=== PATIENT | female | born 1970 | race Caucasian/White ===

== ENCOUNTER 2021-12-09 09:30 | Day surgery (SDC) | payer OTHER, SELFPAY ==
[2021-12-08 11:36] VITALS: BMI 27.6
[2021-12-09 09:56] VITALS: BP 166/94; PULSE 64; RESP 15; TEMP 36.8; O2SAT 97
[2021-12-09 10:01] LABS: OR HCG Qualitative Urine Negative (Negative)
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
[2021-12-09] MEDS: sodium chloride 0.9% 1,000 ML 30 ML IV (10:08)
--- NOTE | 2021-12-09 10:25 | W.PM.OPSUD ---
Surgery/Procedure H&P Update DATE OF PROCEDURE: December 09, 2021 DATE H&P PERFORMED: 11/19/21 PREOP DIAGNOSIS: foreign body right arm PLANNED PROCEDURE: Operation Date: 12/09/21 11:25 Proposed Procedures p excision of foreign body right arm [id number],M79.5(Right) - Donald Baptitse DO
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
[2021-12-09 10:59] VITALS: BP 112/83; PULSE 74; RESP 16; TEMP 36.8; O2SAT 94
[2021-12-09 11:05] VITALS: BP 118/82; PULSE 70; RESP 15; TEMP 36.3; O2SAT 92
[2021-12-09 11:08] VITALS: BP 116/86; PULSE 73; RESP 15; TEMP 36.6; O2SAT 96
[2021-12-09 11:23] VITALS: BP 126/91; PULSE 70; RESP 16; O2SAT 98
--- NOTE | 2021-12-09 14:45 | ANE.PACU2 ---
Inpatient post-anesthesia follow up: Airway intact: Yes Vital signs: Temperature 98 F Pulse Rate 70 Respiratory Rate 16 Blood Pressure 126/91 Pulse Oximetry 98 Oxygen Delivery Me thod Room Air Oxygen Flow Rate Fraction of Inspir ed Oxygen Hydration adequate: Yes Nausea and vomiting: No Pain level: 1 Mental status: Baseline
== END 2021-12-09 11:35 | disposition home or self-care (01) ==
PROVIDERS: PCP Nurse Practitioner Family; Visit Provider Surgery
PROC: (CPT 10120; principal; 2021-12-09 11:15)
DX: S41.141A Puncture wound with foreign body of right upper arm, initial encounter (principal); V89.2XXA Person injured in unspecified motor-vehicle accident, traffic, initial encounter
CPT/HCPCS: 10120; 81025; 84703; 88300; J2704; J3010; J7030

== ENCOUNTER 2022-04-12 08:57 | Outpatient (CLI) | payer MEDICAID, SELFPAY ==
--- NOTE | 2022-04-12 09:30 | MR_ITS ---
WS: [id number] MRI BRAIN WITHOUT CONTRAST HISTORY: R29.90 - Unspecified symptoms and signs involving the nervous system. Prior small brain hemo rrhage. COMPARISON: CT head 10/03/2021 and 09/22/2021 TECHNIQUE: Diffusion imaging, multiplanar T1, T2 and FLAIR imaging obtained. No evidence for acute infarct or hemorrhage. [place]-white matter differentiation is normal. No residual subarachnoid blood products are noted along the LEFT sylvian fissure as described on the prior study, head CT from 09/22/2021. No hemosiderin. On the FLAIR sequence there are very few scattere d T2 and FLAIR signal hyperintensities. These are predominantly within the LEFT subcortical frontal l obe white matter which can be related to migraines. Ventricles and extra-axial spaces are normal. No inferior displacement of cerebellar tonsils. The sella turcica and pituitary gland are unremarkabl e. Dural venous sinuses and [place] demonstrate no abnormality on this unenhanced studies. Paranasal sinuses: Clear. Mastoid air cells: Normal. Calvarium and scalp: Intact. MR/MR head wo con* [id number] IMPRESSION: 1. No diffusion-weighted abnormalities or acute hemorrhage. 2. No significant residual LEFT subdural arachnoid hemorrhage identified. 3. Very minimal subcortical white matter lesions in the LEFT frontal lobe. Dif ferential includes small vessel ischemic disease and history of migraines.
== END 2022-04-12 08:58 | disposition home or self-care (01) ==
LOC: RAD 08:58
PROVIDERS: PCP Nurse Practitioner Family; Visit Provider Specialist
DX: R29.90 Unspecified symptoms and signs involving the nervous system (principal); G93.9 Disorder of brain, unspecified
CPT/HCPCS: 70551

== ENCOUNTER → 2022-05-04 13:38 | Outpatient (BNVA) | payer MEDICAID, SELFPAY | PROVIDERS: PCP Nurse Practitioner Family; Visit Provider Podiatrist Foot & Ankle Surgery | DX: M72.2 Plantar fascial fibromatosis (principal) | CPT/HCPCS: 73630 ==

== ENCOUNTER 2022-05-06 07:50 | Outpatient (CLI) | payer MEDICAID, SELFPAY ==
--- NOTE | 2022-05-06 08:00 | MM_ITS ---
WS: [id number] BILATERAL SCREENING DIGITAL TOMOSYNTHESIS MAMMOGRAM WITH CAD HISTORY: SCREENING COMPARISON: 04/04/2008 Bilateral CC and MLO views with tomosynthesis and synthetic mammography submitted. Computer aided det ection analyzed. Breast composition: There are scattered areas of fibroglandular density. No suspicious masses, microc alcifications or architectural distortion. MM/[place] [id number] IMPRESSION: BI-RADS: 1-Negative FOLLOW UP: 1 Year Follow-up
== END 2022-05-06 07:51 | disposition home or self-care (01) ==
PROVIDERS: PCP Nurse Practitioner Family; Visit Provider Nurse Practitioner Family
DX: Z12.31 Encounter for screening mammogram for malignant neoplasm of breast (principal)
CPT/HCPCS: 77063; 77067

== ENCOUNTER 2022-08-26 23:26 | Emergency (ER) | payer MEDICAID, SELFPAY ==
[2022-08-26 23:39] VITALS: PULSE 74; RESP 13; TEMP 36.7; O2SAT 98
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
[2022-08-27 00:33] VITALS: RESP 19
[2022-08-27] MEDS: morphine 4 mg/mL SDV 1 mL IM (00:33)
[2022-08-27] MEDS: methocarbamol 750 mg Tablet PO (00:33)
[2022-08-27] MEDS: dexamethasone 10 mg/mL INJ IM (00:34)
[2022-08-27 01:02] VITALS: BP 136/93; PULSE 68; O2SAT 98
[2022-08-27] MEDS: ketorolac 60 mg/2 mL INJ IM (01:05)
== END 2022-08-27 01:13 | disposition home or self-care (01) ==
PROVIDERS: Emergency Provider Physician Assistant; PCP Nurse Practitioner Family
DX: M54.50 Low back pain, unspecified (principal)
CPT/HCPCS: 96372; 99284; J1100; J1885; J2270

== ENCOUNTER 2022-08-29 15:54 | Outpatient (CLI) | payer MEDICAID, SELFPAY ==
--- NOTE | 2022-08-29 16:08 | XR_ITS ---
WS: [id number] XR lumbar spine 2-3V* [id number] REASON FOR EXAM: BACK PAIN FINDINGS: Mild rotatory scoliosis of the lumbar spine convex left. Relatively normal lordosis. No focal vertebral body abnormality. Intervertebral disc spaces are intact and relatively well-preserved. Minimal anterior osteophytosis a t L4-L5. No spondylolysis or spondylolisthesis. XR/XR lumbar spine 2-3V* [id number] IMPRESSION: Minimal change of degenerative spondylosis as above.
== END 2022-08-29 15:55 | disposition home or self-care (01) ==
LOC: RAD 16:03
PROVIDERS: PCP Nurse Practitioner Family; Visit Provider Nurse Practitioner Family
DX: M47.816 Spondylosis without myelopathy or radiculopathy, lumbar region (principal)
CPT/HCPCS: 72100

== ENCOUNTER 2023-03-22 10:47 | Outpatient (CLI) | payer MEDICAID, SELFPAY ==
[2023-03-22 12:26] VITALS: BMI 29.9
--- NOTE | 2023-03-22 12:27 | ECG_ITS ---
[facility] Test Date: 2023-03-22 Pat Name: Melvi Jordan Department: Room: Gender: Female Supervisor Operations: : 1970 Requested By: Odilia Santos Order Number: [id number] Angelica MD: Dakotah Eaton M.D. Interpretive Statements NAME OF STUDY: TREADMILL STRESS TEST INDICATION: [Chest Pain] EXERCISE DATA: The patient was exercised by Marcello protocol. Baseline heart rate was 77 beats per minute. Baseline blood pressure was 139/106 millimeters of mercury. Target heart rate was 143 beats per minute. Maximum heart rate achieved was 163, which was 113% of the target heart rate. Maximum blood pressure was 207/100 millimeters of mercury. Total exercise time was 9 minutes. Maximum METs achieved was 10.2. The reason for ending the test was maximal effort achieved. The patient complained of shortness of breath during the stress test, which then resolved at the end of the test. ELECTROCARDIOGRAM: BASELINE: Showed sinus rhythm, normal axis, no significant ST-T changes at the baseline noted. [] EXERCISE: At the peak exercise level, [] during exercise, no significant ST-T wave changes are seen. PVCs are seen. RECOVERY: During the recovery period, heart rate dropped appropriately. No significant ST-T changes in the recovery suggestive of ischemia noted. [] CONCLUSION: 1. Exercise capacity is good. 2. Heart rate response was appropriate. 3. Blood pressure response was appropriate. 4. Symptoms not suggestive of ischemia. 5. Stress test is negative for ischemia Electronically Signed On 04-09-2023 20:30:34 SHIP SUPERINTENDENT by Dakotah Eaton M.D. [email or web address]
[2023-03-22 13:11] VITALS: BP 138/72; PULSE 86
== END 2023-03-22 10:48 | disposition home or self-care (01) ==
PROVIDERS: PCP Nurse Practitioner Family; Visit Provider Nurse Practitioner Family
DX: R07.9 Chest pain, unspecified (principal)
CPT/HCPCS: 93017

== ENCOUNTER → 2023-05-08 12:28 | Outpatient (BNVA) | payer MEDICAID, SELFPAY | PROVIDERS: PCP Nurse Practitioner Family; Referring Provider Nurse Practitioner Family; Visit Provider Internal Medicine | DX: R07.9 Chest pain, unspecified (principal) | CPT/HCPCS: 93005 ==

== ENCOUNTER 2023-05-11 06:33 | Outpatient (CLI) | payer MEDICAID, SELFPAY ==
--- NOTE | 2023-05-11 06:30 | USCV_ITS ---
Melvi Jordan Age: 52 Gender: F : 1970 Exam Date: 05/11/2023 06:41 Ordering Phys: Dakotah Eaotn M.D ([email or web address]) Technologist: EVERARDO [place] [facility] [place]: CHEST PAIN AND SHORTNESS OF BREATH BP: 132 / 80 HR: 65 Rhythm: Sinus Technical Quality: Adequate MEASUREMENTS (Male / Female) Normal Values 2D ECHO LV Diastolic Diameter PLAX 4.4 cm 4.2 - 5.9 / 3.9 - 5.3 cm IVS Diastolic Thickness 1.0 cm 0.6 - 1.0 / 0.6 - 0.9 cm IVS Systolic Thickness 1.7 cm LVPW Diastolic Thickness 1.3 cm 0.6 - 1.0 / 0.6 - 0.9 cm LVPW Systolic Thickness 1.8 cm LVOT Diameter 2.0 cm LV Ejection Fraction 2D Teich 67.2 % LV Ejection Fraction MOD 2C 57.9 % LV Ejection Fraction 2C AL 0.0 % LA Diameter 3.4 cm Aorta at Sinotubular Diameter 2.2 cm IVC Diameter 1.2 cm M-MODE LA Ao Ratio MM 1.0 AV Cusp Separation MM 1.6 cm DOPPLER AV Peak Velocity 125.0 cm/s LVOT Peak Velocity 89.0 cm/s AV Area Cont Eq vti 2.4 cm squared AV Area Cont Eq pk 2.2 cm squared MV Peak Velocity 98.0 cm/s MV Area PHT 2.6 cm squared Mitral E to A Ratio 1.2 TR Peak Velocity 198.0 cm/s TR Peak Gradient 15.7 mmHg TR Mean Velocity 158.0 cm/s TR Mean Gradient 10.7 mmHg TR Velocity Time Integral 69.2 cm TV Peak E Velocity 63.0 cm/s Right Atrial Pressure 3.0 mmHg Pulmonary Artery Systolic Pressu 18.7 mmHg PV Peak Velocity 85.0 cm/s RV Ejection Time 0.3 s FINDINGS Left Ventricle Left ventricle is normal in size. LV systolic function is normal with EF of 55 to 60%. No regional wall motion abnormalities are seen. Right Ventricle Normal in size and function Right Atrium Normal in size Left Atrium Normal in size Mitral Valve Structurally normal mitral valve. Mild mitral regurgitation. Aortic Valve Structurally normal aortic valve. No significant stenosis. Mild aortic regurgitation. Tricuspid Valve Mild tricuspid regurgitation. Pulmonary artery systolic pressure is normal. Pulmonic Valve Not well visualized Pericardium Normal Aorta Normal in size IVC Appears to be normal CONCLUSIONS LV systolic function is normal with EF of 55 to 60%. Mild mitral regurgitation. Mild aortic regurgitation Mild tricuspid regurgitation No comparison studies are available Dakotah Eaton MD (Electronically Signed) Final Date: 13 May 2023 13:28 S
== END 2023-05-11 06:34 | disposition home or self-care (01) ==
PROVIDERS: PCP Nurse Practitioner Family; Visit Provider Internal Medicine
DX: R07.9 Chest pain, unspecified (principal); R06.02 Shortness of breath
CPT/HCPCS: 93306

== ENCOUNTER 2023-05-17 06:49 | Outpatient (CLI) | payer MEDICAID, SELFPAY ==
--- NOTE | 2023-05-17 07:30 | USCV_ITS ---
Melvi Jordan Age: 52 Gender: F : 1970 Exam Date: 05/17/2023 07:04 Ordering Phys: Dakotah Eaton M.D ([email or web address]) Technologist: ALTON Exam Location: [facility] – [place] Indication: Neck Pain Risk Factors: Previous Vascular Surgery: Right Brachial BP: / Left Brachial BP: / Right Left Velocity (cm/s) Spectral Plaque Velocity (cm/s) Spectral Plaque Syst/Diast Broadening Syst/Diast Broadening 62.10/ 20.60 Prox CCA 43.30 / 16.30 59.50/ 23.20 Mid CCA 68.60 / 27.20 62.10/ 27.10 Distal CCA 55.50 / 27.20 53.00/ 21.90 Prox ICA 103.50/ 29.40 69.80/ 28.40 Mid ICA 83.90 / 35.90 102.70/52.60 Distal ICA 86.00 / 40.30 90.60 ECA 83.90 1.70 ICA/CCA 1.90 Antegrade Vertebral Antegrade 47.40/ 19.10 cm/s 61.70/ 31.40 cm/s Tri Subclavian Tri 98.60 91.70 FINDINGS Comparison: none available. No significant elevation of systolic or diastolic velocities. Waveforms are normal. No significant amount of calcified plaque or intimal thickening identified. CONCLUSIONS Normal carotid doppler ultrasound. Dr. Liane Ramirez DO (Electronically Signed) Final Date: 17 May 2023 12:11 S
== END 2023-05-17 06:50 | disposition home or self-care (01) ==
LOC: RAD 06:49
PROVIDERS: PCP Nurse Practitioner Family; Visit Provider Internal Medicine
DX: I65.23 Occlusion and stenosis of bilateral carotid arteries (principal)
CPT/HCPCS: 93880

== ENCOUNTER 2023-05-30 10:22 | Outpatient (CLI) | payer MEDICAID, SELFPAY ==
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
== END 2023-05-30 10:23 | disposition home or self-care (01) ==
LOC: MOBLMAM 10:37
PROVIDERS: PCP Nurse Practitioner Family; Visit Provider Nurse Practitioner Family
DX: Z12.31 Encounter for screening mammogram for malignant neoplasm of breast (principal); N64.89 Other specified disorders of breast
CPT/HCPCS: 77063; 77067

== ENCOUNTER 2023-06-27 07:57 | Outpatient (CLI) | payer MEDICAID, SELFPAY ==
--- NOTE | 2023-06-27 08:28 | MM_ITS ---
WS: [id number] ADDITIONAL VIEWS LEFT MAMMOGRAM with tomosynthesis. LEFT BREAST ULTRASOUND HISTORY: ABNORMAL MAMMO COMPARISON: 05/30/2023, 05/06/2022 LEFT MAMMOGRAM: Spot compression views and true ML with tomosynthesis and sympathetic mammography. Previously described asymmetry and spiculation in the upper outer quadrant of the LEFT breast nearly completely resolves with additional imaging. There is no persistent distortion. Ultrasound to follow. LEFT BREAST ULTRASOUND 2-D and color Doppler imaging submitted. Ultrasound directed to the upper outer quadrant of the LEFT breast. No abnormality is identified. IMPRESSION: MM/[place] [id number] BI-RADS: 2-Benign FOLLOW UP: 1 Year Follow-up
== END 2023-06-27 07:58 | disposition home or self-care (01) ==
LOC: RAD 07:57
PROVIDERS: PCP Nurse Practitioner Family; Visit Provider Nurse Practitioner Family
DX: R92.8 Other abnormal and inconclusive findings on diagnostic imaging of breast (principal)
CPT/HCPCS: 76642; 77061; G0279

== ENCOUNTER 2023-09-11 06:00 | Outpatient (RCR) | payer MEDICAID, SELFPAY | END 2023-09-17 23:59 | disposition home or self-care (01) | LOC: APT 06:00 | PROVIDERS: PCP Nurse Practitioner Family; Visit Provider Nurse Practitioner Family | DX: M54.9 Dorsalgia, unspecified (principal); G89.29 Other chronic pain | CPT/HCPCS: 97110; 97112; 97161; 97530 ==

== ENCOUNTER 2023-09-18 06:00 | Outpatient (RCR) | payer MEDICAID, SELFPAY | END 2023-10-18 23:59 | disposition home or self-care (01) | LOC: APT 06:00 | PROVIDERS: PCP Nurse Practitioner Family; Visit Provider Nurse Practitioner Family | DX: M54.9 Dorsalgia, unspecified (principal); G89.29 Other chronic pain | CPT/HCPCS: 97110; 97112; 97530 ==

== ENCOUNTER 2024-02-02 08:44 | Outpatient (CLI) | payer MEDICAID, SELFPAY ==
--- NOTE | 2024-02-02 08:48 | XR_ITS ---
WS: [id number] Left knee, 3 views, 02/02/2024 Clinical Data: L KNEE PAIN Comparison: None. Findings: No fractures or dislocations are seen. The joint spaces are normal. The patella is intact. The soft t issues are unremarkable. There is a small spur of the medial femoral condyle. XR/XR knee LT 3V* [id number] Impression: Small spur of medial femoral condyle. Kellgren-Bernardo Classification: grade 1 (doubtful): doubtful joint space narr owing and possible osteophytic lipping
== END 2024-02-02 08:45 | disposition home or self-care (01) ==
LOC: RAD 08:45
PROVIDERS: PCP Nurse Practitioner Family; Visit Provider Nurse Practitioner Family
DX: M25.762 Osteophyte, left knee (principal); M25.562 Pain in left knee
CPT/HCPCS: 73562

== ENCOUNTER → 2024-03-04 12:50 | Outpatient (BNVA) | payer MEDICAID, SELFPAY | PROVIDERS: PCP Nurse Practitioner Family; Visit Provider Specialist | DX: M25.562 Pain in left knee (principal); S83.207A Unspecified tear of unspecified meniscus, current injury, left knee, initial encounter; X58.XXXA Exposure to other specified factors, initial encounter | CPT/HCPCS: 73560; 73565 ==

== ENCOUNTER 2024-03-08 12:11 | Outpatient (CLI) | payer MEDICAID, SELFPAY ==
--- NOTE | 2024-03-08 13:00 | MR_ITS ---
WS: [id number] MRI LEFT KNEE HISTORY: knee pain COMPARISON: Radiograph 03/04/2024 Anterior cruciate ligament: Intact. Posterior cruciate ligament: Intact. Medial collateral ligament: Increased T2 signal in the MCL consistent with a mild sprain. Posterior lateral corner structures: Intact. Medial menisci: Intact. Normal signal, size and shape. Lateral meniscus: Intact. Normal signal, size and shape. Extensor mechanism: Distal quadriceps tendon and patellar tendons are intact. Fluid and soft tissue: Small suprapatellar joint effusion. Moderate-sized Suazo's cyst. Debris within the Suazo's cyst. Osseous and articular structures: Patellofemoral compartment: Mild chondromalacia involving the patellar eminence. No marrow edema. Medial compartment: Mild narrowing of the medial compartment. Small amount of marrow edema in the fem oral condyle. No fracture. Lateral compartment: Mild narrowing. Thinning and fissuring of the cartilage. No marrow edema. MR/MR knee LT wo con* [id number] IMPRESSION: 1. Focal marrow edema in the medial femoral condyle and mild MCL sprain. 2. Moderate size Suazo's cyst. 3. Mild narrowing the medial and lateral compartments with thinning and fissur ing of the cartilage. Greater involvement in the lateral compartment.
== END 2024-03-08 12:12 | disposition home or self-care (01) ==
LOC: RAD 12:13
PROVIDERS: PCP Nurse Practitioner Family; Visit Provider Specialist
DX: M71.22 Synovial cyst of popliteal space [Baker], left knee (principal); M25.462 Effusion, left knee
CPT/HCPCS: 73721

== ENCOUNTER 2024-03-18 15:15 | Outpatient (CLI) | payer MEDICAID, SELFPAY ==
--- NOTE | 2024-03-18 15:25 | XR_ITS ---
WS: [id number] Chest 2 views, 03/18/2024 Clinical Data: COUGH/ACUTE URI Comparison: Portable chest, 09/06/2016 Findings: No nodules, masses or effusions are seen. The heart is normal. The pulmonary vascularity is not increased. No pneumonia or pneumothorax is seen. XR/XR chest 2V* [id number] Impression: Negative chest.
== END 2024-03-18 15:16 | disposition home or self-care (01) ==
LOC: RAD 15:16
PROVIDERS: PCP Nurse Practitioner Family; Visit Provider Nurse Practitioner Family
DX: R05.8 Other specified cough (principal); J06.9 Acute upper respiratory infection, unspecified
CPT/HCPCS: 71046

== ENCOUNTER 2024-06-28 11:38 | Outpatient (CLI) | payer MEDICAID, SELFPAY ==
--- NOTE | 2024-06-28 11:47 | MM_ITS ---
WS: [id number] BILATERAL 3D TOMOSYNTHESIS DIGITAL SCREENING MAMMOGRAPHY WITH CAD CLINICAL INFORMATION: SCREENING HISTORY: Screening mammogram. No current complaints. COMPARISON: 06/27/2023 TECHNIQUE: Bilateral CC and MLO views. FINDINGS: Scattered fibroglandular densities bilaterally. No suspicious focal mass, asymmetry, calcifications, or architectural distortion. No evidence of malignancy. Vascular calcifications MM/MM scr tomosynthesis [id number] IMPRESSION: DENSITY: There are scattered areas of fibroglandular density. BI-RADS: 2 - Benign. FOLLOW UP: 1 Year Follow-up Recommend return to annual screening mammography.
== END 2024-06-28 11:39 | disposition home or self-care (01) ==
LOC: RAD 11:40
PROVIDERS: PCP Nurse Practitioner Family; Visit Provider Nurse Practitioner Family
DX: Z12.31 Encounter for screening mammogram for malignant neoplasm of breast (principal); R92.323 Mammographic fibroglandular density, bilateral breasts; R92.1 Mammographic calcification found on diagnostic imaging of breast
CPT/HCPCS: 77063; 77067

== ENCOUNTER 2024-11-28 11:08 | Outpatient (CLI) | payer MEDICAID, SELFPAY ==
--- NOTE | 2024-11-28 11:18 | XRR_ITS ---
PROCEDURE INFORMATION: Exam: XR Lumbosacral Spine Exam date and time: 11/28/2024 11:37 AM Age: 53 years old Clinical indication: Low back pain; Pain in lower back and hips down to ankles, difficulty walking; Additional info: Chronic back pain TECHNIQUE: Imaging protocol: Radiologic exam of the lumbosacral spine. Views: 2 or 3 views. COMPARISON: CR XR lumbar spine 2-3V* [id number] 08/29/2022 4:19 PM FINDINGS: Bones/joints: Normal. No acute fracture. Normal alignment. Soft tissues: Unremarkable. XR/XR lumbar spine 2-3V* [id number] IMPRESSION: No acute findings.
--- NOTE | 2024-11-28 11:18 | XRR_ITS ---
PROCEDURE INFORMATION: Exam: XR Bilateral Hips Exam date and time: 11/28/2024 11:37 AM Age: 53 years old Clinical indication: Hip pain; Bilateral; Pain in lower back and hips down to ankles, difficulty walking; Additional info: Pain of bilateral hip joints TECHNIQUE: Imaging protocol: Radiologic exam of the bilateral hips. Views: 2 views of hips with pelvis when performed. COMPARISON: CR XR lumbar spine 2-3V* [id number] 11/28/2024 11:37 AM FINDINGS: Bones/joints: Unremarkable. No acute fracture. Soft tissues: Unremarkable. XR/XR hip BI 3-4V wo/w pel [id number] IMPRESSION: No acute findings.
== END 2024-11-28 11:09 | disposition home or self-care (01) ==
PROVIDERS: PCP Nurse Practitioner Family; Visit Provider Family Medicine
DX: M54.89 Other dorsalgia (principal)
CPT/HCPCS: 72100; 73522

== ENCOUNTER 2025-01-14 10:05 | Outpatient (CLI) | payer MEDICAID, SELFPAY ==
--- NOTE | 2025-01-14 10:12 | XRR_ITS ---
PROCEDURE INFORMATION: Exam: XR Cervical Spine Exam date and time: 01/14/2025 10:23 AM Age: 54 years old Clinical indication: Neck pain; Additional info: Chronic neck pain TECHNIQUE: Imaging protocol: Radiologic exam of the cervical spine. Views: 6 or more views. COMPARISON: CR XR ribs LT 2V* [id number] 08/31/2024 11:24 PM FINDINGS: Bones/joints: Normal. No acute fracture. Normal alignment. Mild levoscoliosis of the thoracolumbar junction. No foraminal narrowing. No spondylolisthesis during flexion or extension views. Left-sided cervical rib at the C7 level. Soft tissues: Unremarkable. XR/XR cervical spine min 6V [id number] IMPRESSION: 1. No acute findings. 2. Left-sided cervical rib.
== END 2025-01-14 10:06 | disposition home or self-care (01) ==
PROVIDERS: PCP Nurse Practitioner Family; Visit Provider Nurse Practitioner Family
DX: M54.2 Cervicalgia (principal); M41.85 Other forms of scoliosis, thoracolumbar region; R93.7 Abnormal findings on diagnostic imaging of other parts of musculoskeletal system
CPT/HCPCS: 72052

== ENCOUNTER → 2025-02-20 13:52 | Outpatient (BNVA) | payer MEDICAID, SELFPAY | PROVIDERS: PCP Nurse Practitioner Family; Visit Provider Orthopaedic Surgery | DX: M54.2 Cervicalgia (principal); M54.9 Dorsalgia, unspecified | CPT/HCPCS: 72050; 72072 ==

== ENCOUNTER 2025-03-04 13:17 | Outpatient (CLI) | payer MEDICAID, SELFPAY ==
--- NOTE | 2025-03-04 13:45 | MR_ITS ---
WS: [id number] MRI CERVICAL SPINE NONCONTRAST HISTORY: neck pain, LEFT arm pain and numbness for 4 months. COMPARISON: None available. Technique: Multiplanar, multisequence noncontrast imaging of the cervical spine. Normal cervical alignment with no compression fracture or significant disc space narrowing. Signal within the cervical cord is normal. Visualized posterior fossa is unremarkable. Craniocervical junction, C1 and C2 relationship, odontoid process and soft tissues are normal. C7 hemangioma. C2-C3: Normal. C3-C4: Very mild disc bulging no stenosis. C4-C5: Small foraminal osteophytes. Mild LEFT foraminal stenosis. Mild facet arthritis. C5-C6: Very mild disc bulging and small foraminal osteophytes. No stenosis. Mild facet arthritis. C6-C7: Small foraminal osteophytes and facet arthritis. No stenosis. C7-T1: No stenosis. Paraspinal soft tissue are normal. MR/MR cervical spin wo con* [id number] IMPRESSION: 1. No high-grade central or foraminal stenosis. 2. Mild LEFT foraminal stenosis at C4-5 due to small osteophyte. 3. Mild facet arthritis from C4-5 through C6-7. 4. Normal signal within the cord.
== END 2025-03-04 13:18 | disposition home or self-care (01) ==
LOC: RAD 13:19
PROVIDERS: PCP Nurse Practitioner Family; Visit Provider Orthopaedic Surgery
DX: M47.892 Other spondylosis, cervical region (principal); M25.78 Osteophyte, vertebrae; M48.02 Spinal stenosis, cervical region; M50.31 Other cervical disc degeneration, high cervical region
CPT/HCPCS: 72141